=== PATIENT | male | born 1930 | race Caucasian/White ===

== ENCOUNTER 2016-09-02 05:52 | Emergency (ER) | payer OTHER ==
[~2016-09-02] VITALS: Ht 154.9 cm; Wt 83.6 kg
[~2016-09-02 05:52] MED LIST: ALEN70TA30 PO; ASPI325T4 PO; ATEN-51 PO; BIMA2.5D BOTH EYES; DILT180C94 PO; LISI10TA2 PO; LOVA10TA63 PO; NIT3 SL; OMEP20CA16 PO; PRAZ2CAP2 PO; [UNRECOGNIZED DRUG - CODE] BOTH EYES
[2016-09-02 05:59] VITALS: Ht 154.9 cm; Wt 83.6 kg
[2016-09-02] MEDS ORDERED: ACETAMINOPHEN 325 MG TAB PO STA (06:10)
[2016-09-02] MEDS ORDERED: CEFEPIME 2GM/50 ML (PMX) 50 ML IVPB STA (06:10)
[2016-09-02 06:13] LABS: AADO2 Arterial 521.6 mmHg (7.0-24.0); Allen Test ACCEPTAB; Arterial Base Excess 0.9 mmol/L (-3.0-3); Arterial COHb 0.3 % (0.0-3.0); Arterial Fraction of Oxyhgb 97.6 % (93.0-99.0); Arterial HCO3 27.4 mmol/L (22.0-26.0); Arterial MetHb 0.4 % (0.0-1.5); Arterial Total Hemglobin 13.6 g/dl (12.0-18.0); Blood Gas IEPAP 15/5; MODE MASK - BIPAP
[2016-09-02] MEDS ORDERED: ALBUTEROL 0.5% (NEB) 2.5 MG/0.5 ML AMP INH ONE (06:17)
[2016-09-02] MEDS ORDERED: ONDANSETRON 4 MG INJ IV STA (06:20)
[2016-09-02] MEDS ORDERED: ALBUTEROL 0.5% (NEB) 2.5 MG/0.5 ML AMP INH STA (06:23)
[2016-09-02 06:24] LABS: ADD SCAN DIFF NO
--- NOTE | 2016-09-02 06:25 | ERA ---
ER Documentation Chief Complaint Date/Time DATE: 09/02/16 TIME: 06:00 Chief Complaint BIBA RA 100 from home c/o CP, SOB HPI 86-year-old male with a history of hypertension, peripheral vascular disease, CVA with residual left-sided weakness, coronary artery disease status post myocardial infarction, anemia, obesity, prediabetes, osteoporosis, glaucoma, lumbar radiculopathy and asthma presents to the ED via ambulance for evaluation of shortness of breath. For the last several days he has had a cough productive of whitish sputum but this morning woke up with severe dyspnea but no chest pain or palpitations. Took one sublingual nitroglycerin without significant relief. #1 was activated and paramedics found him in severe distress with O2 saturation of 84% and CPAP was initiated with market improvement. On arrival to the ED feels definitely better. No abdominal pain, nausea, vomiting, diarrhea or constipation. Denies headache, back or neck pain. No visual changes, focal weakness or numbness. Denies dysuria or polyuria. Denies leg pain or swelling. No skin rash. No fevers or chills. ROS All systems reviewed and are negative except as per history of present illness. Medications Home Meds Reported Medications Prazosin Hcl* (Prazosin Hcl*) 2 Mg Capsule, 2 MG PO BID, CAP 07/23/14 Omeprazole* (Omeprazole*) 20 Mg Capsule.dr, 20 MG PO DAILY, CAP 07/23/14 Nitroglycerin* (Nitroglycerin* SL) 0.3 Mg Tab.subl, SL Q5MIN Y for CHEST PAIN, BOTTLE 07/23/14 Bimatoprost* (Lumigan*) 0.01%-2.5 Ml Opht Drops, 1 DROP BOTH EYES HS, EA 07/23/14 Levobunolol Hcl (LEVOBUNOLOL HCL) 10 Ml Drops, 1 DRP BOTH EYES BID 07/23/14 Lovastatin* (Lovastatin*) 10 Mg Tablet, 10 MG PO at 5pm meal, TAB 07/23/14 Lisinopril* (Lisinopril*) 10 Mg Tablet, 10 MG PO DAILY, TAB 07/23/14 Alendronate Sodium* (Fosamax*) 70 Mg Tablet, 70 MG PO Q7D, TAB 07/23/14 Diltiazem Hcl* (Diltiazem XT) 180 Mg Capsule.er, 180 MG PO DAILY, CAP 07/23/14 Atenolol* (Atenolol*) 25 Mg Tablet, 12.5 MG PO DAILY, TAB 07/23/14 Aspirin* (Aspirin*) 325 Mg Tablet, 325 MG PO DAILY, TAB 07/23/14 Allergies Allergies: Coded Allergies: iodine (Verified Allergy, Severe, 07/23/14) PMhx/Soc Reviewed in chart. As per HPI. History of Surgery: Yes (Angioplasty x 2 1984, 1985) Anesthesia Reaction: No Hx Neurological Disorder: No Hx Respiratory Disorders: No Hx Psychiatric Problems: Yes (HTN) Hx Miscellaneous Medical Probl: No Hx Alcohol Use: No Hx Substance Use: No Hx Tobacco Use: No Smoking Status: Never smoker FmHx Not relevant to presenting complaint. No stroke or cancer. Physical Exam Vitals Vital Signs Date Time Temp Pulse Resp B/P Pulse Ox O2 Delivery O2 Flow Rate FiO2 09/02/16 08:46 99.9 09/02/16 07:45 67 100 80 09/02/16 07:27 99.4 09/02/16 07:25 77 17 122/57 98 BIPAP 09/02/16 06:49 79 27 142/60 99 BIPAP 09/02/16 06:30 80 09/02/16 06:02 79 100 100 09/02/16 05:59 103.5 102 22 175/74 91 Physical Exam Const: Alert, moderate to severe respiratory distress Head: Atraumatic Eyes: Normal Conjunctiva ENT: Normal External Ears, Nose and Mouth. Pharynx is clear. Mucous membranes are moist. No erythema or exudate. Neck: Full range of motion. Nontender. No JVD. No meningismus. Resp: Breath sounds are diminished bilaterally with crackles at the left greater than right base. Mild expiratory wheezing. Cardio: Tachycardic. Regular rate and rhythm, no murmurs Abd: Soft, non tender, non distended. Normal bowel sounds. No rebound or guarding. No masses or abnormal pulsations. Skin: No petechiae or rashes Back: No midline or flank tenderness Ext: No cyanosis, or edema. No calf swelling or tenderness. Neur: Awake and alert. No facial droop. Left upper greater than left lower extremity weakness. Psych: Normal Mood and Affect Result Diagram: 5/6/17 0600 5/6/17 0600 Results 24 hrs Laboratory Tests Test 09/02/16 06:00 09/02/16 06:10 09/02/16 07:35 09/02/16 08:10 White Blood Count 11.110^3/ul Red Blood Count 3.7310^6/ul Hemoglobin 11.3g/dl Hematocrit 35.1% Mean Corpuscular Volume 94.1fl Mean Corpuscular Hemoglobin 30.3pg Mean Corpuscular Hemoglobin Concent 32.2g/dl Red Cell Distribution Width 13.2% Platelet Count 93356^3/UL Mean Platelet Volume 9.2fl Neutrophils % 83.0% Lymphocytes % 9.9% Monocytes % 5.1% Eosinophils % 1.3% Basophils % 0.3% Nucleated Red Blood Cells % 0.0/100WBC Neutrophils # 9.210^3/ul Lymphocytes # 1.110^3/ul Monocytes # 0.610^3/ul Eosinophils # 0.110^3/ul Basophils # 0.010^3/ul Nucleated Red Blood Cells # 0.010^3/ul Prothrombin Time 13.0Sec Prothrombin Time Ratio 1.0 INR International Normalized Ratio 0.98 Activated Partial Thromboplast Time 25.4Sec Sodium Level 142mmol/L Potassium Level 4.9mmol/L Chloride Level 98mmol/L Carbon Dioxide Level 31mmol/L Anion Gap 18 Blood Urea Nitrogen 24mg/dl Creatinine 0.94mg/dl Glucose Level 128mg/dl Lactic Acid Level 1.7mmol/L Calcium Level 9.2mg/dl Total Bilirubin 0.3mg/dl Direct Bilirubin 0.00mg/dl Indirect Bilirubin 0.3mg/dl Aspartate Amino Transf (AST/SGOT) 32IU/L Alanine Aminotransferase (ALT/SGPT) 28IU/L Alkaline Phosphatase 65IU/L Troponin I < 0.012ng/ml B-Type Natriuretic Peptide 478PG/ML Total Protein 7.9g/dl Albumin 4.2g/dl Globulin 3.70g/dl Albumin/Globulin Ratio 1.13 Blood Gas Specimen Source Blood arterial Blood arterial Blood arterial Arterial Blood Date Drawn 09/02/2016 6:09:41 AM 09/02/2016 7:27:17 AM 09/02/2016 8:15:05 AM Arterial Blood pH (Temp corrected) 7.349 7.327 7.333 Arterial Blood pCO2 (Temp correct) 50.8mmhg 44.3mmhg 49.9mmhg Arterial Blood pO2 (Temp corrected) 140.6mmHG 167.6mmHG 78.2mmHG Arterial Blood HCO3 27.4mmol/L 22.7mmol/L 25.9mmol/L Arterial Blood Base Excess 0.9mmol/L -3.3mmol/L -0.5mmol/L Arterial Blood Oxygen Saturation 98.3mmHG 98.5mmHG 94.2mmHG Enrike Test ACCEPTAB ACCEPTAB ACCEPTAB Arterial Blood Gas Puncture Site Right Radial Right Radial Right Radial Arterial Blood Carboxyhemoglobin 0.3% 0.3% 0.3% Arterial Blood Methemoglobin 0.4% 0.6% 0.4% Blood Gas A-a O2 Differential 521.6mmHg 356.3mmHg 222.2mmHg Oxyhemoglobin Percent 97.6% 97.6% 93.5% Total Hemoglobin 13.6g/dl 11.9g/dl 11.8g/dl Blood Gas Temperature 37.0C 37.0C 37.0C Blood Gas Respiration Rate 18.0 18.0 18.0 Blood Gas Actual Respiration Rate 23 18 22 Blood Gas Modality MASK - BIPAP MASK - BIPAP MASK - BIPAP FiO2 100.0% 80.0% 50.0% Blood Gas IPAP/EPAP Ratio 11/09 11/09 11/09 Blood Gas Notified Whom MG RT RT Blood Gas Notified Time 09/02/2016 6:13:16 AM 09/02/2016 7:39:51 AM 09/02/2016 8:23:34 AM Blood Gas Pressure Support 10 10 Current Medications Medications (Trade) Dose Ordered Sig/Alice Route PRN Reason Start Time Stop Time Status Last Admin Dose Admin Albuterol (Proventil 0.5% (Neb)) 15 mg ONCE ONCE INH 09/02/16 06:17 09/02/16 06:18 DC Acetaminophen 650 mg 650 mg ONCE STAT PO 09/02/16 06:10 09/02/16 06:18 DC 09/02/16 07:12 Cefepime HCl 50 ml @ 100 mls/hr ONCE STAT IVPB 09/02/16 06:10 09/02/16 06:39 DC 09/02/16 06:39 Vancomycin HCl (Vancocin) 250 ml @ 125 mls/hr ONCE ONCE IVPB 09/02/16 06:30 09/02/16 08:29 DC 09/02/16 07:05 Ondansetron HCl (Zofran Inj) 4 mg ONCE STAT IV 09/02/16 06:20 09/02/16 06:23 DC 09/02/16 06:48 Albuterol (Proventil 0.5% (Neb)) 15 mg ONCE STAT INH 09/02/16 06:23 09/02/16 06:24 DC 09/02/16 06:28 Sodium Chloride (NS) 2,590 ml BOLUS OVER 2 HOURS STAT IV* 09/02/16 06:46 09/02/16 06:47 DC 09/02/16 06:48 RHYTHM STRIP INTERPRETATION: Time: 07:00. Sinus rhythm. Ventricular rate 72. No ectopy. Indication: Shortness of breath. EKG: TIME: 6:00. Sinus rhythm with occasional PVCs. Ventricular rate 95. Normal AR and QRS. Q waves in leads II, III, and aVF. No acute ST segment elevation or depression. Interpretation is limited due to baseline artifact. EP Interpretation: Abnormal EKG. ABG: Time: 06:11. pH: 7.349 pCO2 50.8 pO2 140.6 O2 saturation 100%. Respiratory acidosis Time: 08:19. pH: 7.33 pCO2 49.9 pO2 78.2 O2 saturation 94%. On BiPAP 15/5, FiO2 50%, respiratory rate 18. IMAGING: PROCEDURE: Chest. CLINICAL INDICATION: Shortness of breath. TECHNIQUE: Single frontal view of the chest was obtained. COMPARISON: 07/23/2014. FINDINGS: The cardiac silhouette is within normal limits. The aortic arch is uncoiled and calcified. There is mild left basilar atelectasis/infiltrate. There is no pleural effusion. There is no pneumothorax. IMPRESSION: Mild left basilar atelectasis/infiltrate. Aortic atherosclerosis. .Jordan Worthy MD, Date Time Electronically viewed and signed by .Jordan Worthy MD, MD on 09/02/2016 07:36 .T/ Procedures/MDM DOCUMENTS REVIEWED: ED nurse, [place], prior ED visit June 2014 for dizziness. ED COURSE: BiPAP 15/5 at 100%. Nebulized albuterol 15 mg. Normal saline 30 cc/ kg bolus. Tylenol 650 mg p.o.. Cefepime and vancomycin after cultures. REEXAMINATION/REEVALUATION: Time: 06:40. Markedly improved. O2 saturation 100%. Nausea with one episode of nonbloody nonbilious emesis treated with Zofran. Abdomen soft nontender. Time: 07:35. Doing well. O2 saturation 100%. Vital signs stable. Temperature 99.4. FiO2 decreased to 50%. Time: 08:20. Doing well. Vital signs stable. No shortness of breath. O2 saturation 95% on BiPAP 15/5, FiO2 50% respiratory rate 18. [employer] DECISION MAKIN-year-old male with a history of hypertension, peripheral vascular disease, CVA with residual left-sided weakness, coronary artery disease status post myocardial infarction, anemia, obesity, prediabetes, osteoporosis, glaucoma, lumbar radiculopathy and asthma presents to the ED via ambulance for evaluation of shortness of breath. Patient presents with acute respiratory distress secondary to asthma exacerbation and pneumonia. Improved significantly with nebulized beta agonists and noninvasive positive pressure ventilation. Multiple criteria for systemic inflammatory response syndrome including fever, tachycardia and tachypnea with sepsis secondary to pneumonia. Initial lactate is normal at 1.7. No hypotension, criteria for severe sepsis or septic shock. Patient will require admission for intravenous antibiotics, respiratory care, further evaluation and management. Counseled patient regarding diagnosis, diagnostic results and plan for admission. CALLS/CONSULTS: Time 07:35, [facility] Dr. Rush, Recommends repeat ABG on FiO2 50% CALLS/CONSULTS: Time 08:33, [facility] Dr. Ruhs, Recommends transfer to [place]. Authorization number #[id number] PATIENT ACCEPTED FOR TRANSFER: Time: 08:35. [facility]. Accepting Dr Torres CRITICAL CARE TIME: Due to the high probability of sudden clinically significant respiratory, hemodynamic and cardiovascular deterioration, this patient with acute dyspnea and respiratory failure required multiple, frequent reevaluations of vital signs and response to therapy. Additional critical care time was spent in interpretation of relevant clinical data, obtaining further history from paramedics and [facility] as well as arranging for transfer. TOTAL CRITICAL CARE TIME: 40 minutes not including other separately reportable procedures. Departure Diagnosis: Primary Impression: Acute respiratory failure Qualified Code: J96.01 - Acute respiratory failure with hypoxia and hypercapnia Additional Impressions: Pneumonia Qualified Code: J18.1 - Pneumonia of left lower lobe due to infectious organism Hypoxia Systemic inflammatory response syndrome Hypertension Qualified Code: I10 - Essential hypertension History of CVA (cerebrovascular accident) Sepsis Qualified Code: A41.9 - Sepsis, due to unspecified organism Condition: Serious ALEXA WILL MD September 02, 2016 06:25
[2016-09-02 06:26] LABS: BASOPHILS % 0.3 % (0.0-2.0); EOSINOPHILS # 0.1 10^3/ul (0.0-0.5); EOSINOPHILS % 1.3 % (0.0-7.0); HEMATOCRIT 35.1 % (42.0-52.0); HEMOGLOBIN 11.3 g/dl (14.0-18.0); LYMPHOCYTES # 1.1 10^3/ul (0.8-2.9); LYMPHOCYTES % 9.9 % (15.0-51.0); MEAN CORPUSCULAR HEMOGLOBIN 30.3 pg (29.0-33.0); MEAN CORPUSCULAR HGB CONC 32.2 g/dl (32.0-37.0); MEAN CORPUSCULAR VOLUME 94.1 fl (82.0-101.0); MEAN PLATELET VOLUME 9.2 fl (7.4-10.4); MONOCYTE # 0.6 10^3/ul (0.3-0.9); MONOCYTES % 5.1 % (0.0-11.0); NEUTROPHIL # 9.2 10^3/ul (1.6-7.5); PLATELET COUNT 159 10^3/UL (140-415); RED BLOOD COUNT 3.73 10^6/ul (4.70-6.10); RED CELL DISTRIBUTION WIDTH 13.2 % (11.5-14.5); WHITE BLOOD COUNT 11.1 10^3/ul (4.8-10.8)
[2016-09-02] MEDS ORDERED: VANCOMYCIN 1 GM (PMX) 250 ML IVPB ONE (06:30)
[2016-09-02 06:46] LABS: ALBUMIN 4.2 g/dl (3.3-4.9); CHLORIDE 98 mmol/L (97-110); POTASSIUM 4.9 mmol/L (3.5-5.1); SODIUM 142 mmol/L (135-144)
[2016-09-02] MEDS ORDERED: SODIUM CHLORIDE 0.9% 1L BAG IV* STA (06:46)
[2016-09-02 06:48] LABS: CREATININE 0.94 mg/dl (0.61-1.24)
[2016-09-02 06:49] LABS: ALANINE AMINOTRANSFERASE 28 IU/L (13-69); ALBUMIN/GLOBULIN RATIO 1.13; ALKALINE PHOSPHATASE 65 IU/L (42-121); ANION GAP 18 (8-16); ASPARTATE AMINO TRANSFERASE 32 IU/L (15-46); BILIRUBIN,INDIRECT 0.3 mg/dl (0-1.1); BILIRUBIN,TOTAL 0.3 mg/dl (0.2-1.3); BLOOD UREA NITROGEN 24 mg/dl (7-20); CALCIUM 9.2 mg/dl (8.4-10.2); CARBON DIOXIDE 31 mmol/L (21-31); GLUCOSE 128 mg/dl (70-220); TOTAL PROTEIN 7.9 g/dl (6.1-8.1)
[2016-09-02 07:01] LABS: TROPONIN-I < 0.012 ng/ml (0.00-0.12)
[2016-09-02 07:20] LABS: INR 0.98
[2016-09-02 07:21] LABS: PARTIAL THROMBOPLASTIN TIME 25.4 Sec (25.0-35.0)
[2016-09-02 07:25] VITALS: BP 122/57; RESP 17
--- NOTE | 2016-09-02 07:37 | RADRPT ---
PROCEDURE: Chest. CLINICAL INDICATION: Shortness of breath. TECHNIQUE: Single frontal view of the chest was obtained. COMPARISON: 07/23/2014. FINDINGS: The cardiac silhouette is within normal limits. The aortic arch is uncoiled and calcified. There i s mild left basilar atelectasis/infiltrate. There is no pleural effusion. There is no pneumothorax . IMPRESSION: Mild left basilar atelectasis/infiltrate. Aortic atherosclerosis. .Jordan Worthy MD, Date Time Electronically viewed and signed by .Jordan Worthy MD, MD on 09/02/2016 07:36 .T/
[2016-09-02 07:39] LABS: AADO2 Arterial 356.3 mmHg (7.0-24.0); Allen Test ACCEPTAB; Arterial Base Excess -3.3 mmol/L (-3.0-3); Arterial COHb 0.3 % (0.0-3.0); Arterial Fraction of Oxyhgb 97.6 % (93.0-99.0); Arterial HCO3 22.7 mmol/L (22.0-26.0); Arterial MetHb 0.6 % (0.0-1.5); Arterial Total Hemglobin 11.9 g/dl (12.0-18.0); Blood Gas IEPAP 15/5; Blood Gas PS 10; MODE MASK - BIPAP
[2016-09-02 07:45] VITALS: PULSE 67
[2016-09-02 08:23] LABS: AADO2 Arterial 222.2 mmHg (7.0-24.0); Allen Test ACCEPTAB; Arterial Base Excess -0.5 mmol/L (-3.0-3); Arterial COHb 0.3 % (0.0-3.0); Arterial Fraction of Oxyhgb 93.5 % (93.0-99.0); Arterial HCO3 25.9 mmol/L (22.0-26.0); Arterial MetHb 0.4 % (0.0-1.5); Arterial Total Hemglobin 11.8 g/dl (12.0-18.0); Blood Gas IEPAP 15/5; Blood Gas PS 10; MODE MASK - BIPAP
[2016-09-02 08:46] VITALS: TEMP 99.9
== END 2016-09-02 09:58 | disposition short-term general hospital (02) ==
LOC: E/R 05:52
DX: A41.9 Sepsis, unspecified organism (principal); J96.01 Acute respiratory failure with hypoxia; R65.11 Systemic inflammatory response syndrome (SIRS) of non-infectious origin with acute organ dysfunction; J96.02 Acute respiratory failure with hypercapnia; I10 Essential (primary) hypertension; J18.1 Lobar pneumonia, unspecified organism; I25.10 Atherosclerotic heart disease of native coronary artery without angina pectoris; E66.9 Obesity, unspecified; J45.909 Unspecified asthma, uncomplicated; Z86.73 Personal history of transient ischemic attack (TIA), and cerebral infarction without residual deficits; Z68.34 Body mass index [BMI] 34.0-34.9, adult; Z79.82 Long term (current) use of aspirin
CPT/HCPCS: 36415; 36600; 71010; 80053; 82803; 83605; 83880; 84484; 85025; 85610; 85730; 87040; 93005; 94644; 94660; 96374; 96375; 99291; J0692; J2405; J3370; J7030